=== PATIENT | male | born 2000 | race African-American/Black ===

== ENCOUNTER 2022-02-05 21:29 | Emergency (ER) | payer OTHER | END 2022-02-05 22:03 | disposition home or self-care (01) | LOC: CSHERS 21:29 | DX: L02.426 Furuncle of left lower limb (principal) | CPT/HCPCS: 99281 ==

== ENCOUNTER 2023-10-19 14:05 | Emergency (ER) | payer SELFPAY ==
[2023-10-19] MEDS ORDERED: Boostrix 0.5 ML (Tdap) VIAL (>/=7 yrs of age) ONE (14:57)
== END 2023-10-19 16:10 | disposition home or self-care (01) ==
LOC: MERGE 14:05 → CSHERS 14:05
DX: S63.613A Unspecified sprain of left middle finger, initial encounter (principal); S09.90XA Unspecified injury of head, initial encounter; F17.290 Nicotine dependence, other tobacco product, uncomplicated; W22.8XXA Striking against or struck by other objects, initial encounter; Z23 Encounter for immunization
CPT/HCPCS: 70450; 90471; 90715

== ENCOUNTER 2025-02-01 16:50 | Emergency (ER) | payer BC ==
[2025-02-01] MEDS ORDERED: Ibuprofen 200 MG TAB ONE (17:48)
[2025-02-01] MEDS ORDERED: Bacitracin 1 PK ONE (18:37)
== END 2025-02-01 18:55 | disposition home or self-care (01) ==
LOC: CSHERS 16:50
DX: S71.112A Laceration without foreign body, left thigh, initial encounter (principal); F17.210 Nicotine dependence, cigarettes, uncomplicated; F17.290 Nicotine dependence, other tobacco product, uncomplicated; W27.2XXA Contact with scissors, initial encounter
CPT/HCPCS: 12002; 99282

== ENCOUNTER 2025-02-03 18:16 | Emergency (ER) | payer BC | END 2025-02-03 20:38 | disposition home or self-care (01) | LOC: CSHERS 18:16 | DX: Z48.00 Encounter for change or removal of nonsurgical wound dressing (principal); S71.112D Laceration without foreign body, left thigh, subsequent encounter; F17.210 Nicotine dependence, cigarettes, uncomplicated; F17.290 Nicotine dependence, other tobacco product, uncomplicated | CPT/HCPCS: 99282 ==